=== PATIENT | female | born 1970 ===

== ENCOUNTER 2016-08-06 18:05 | Emergency (ER) | payer MEDICAID ==
[2016-08-06 18:05] VITALS: BMI 33.3
[2016-08-06 19:19] VITALS: RESP 14; TEMP 98
[2016-08-06] MEDS ORDERED: Sodium Chloride 0.9% 1,000 ML IV ONE (20:14)
[2016-08-06 21:00] LABS: RBC URINE 2129 /hpf (0-3); URINE BACTERIA FEW (<OCC); URINE BILIRUBIN NEGATIVE (NEGATIVE); URINE BLOOD 3+ (NEGATIVE); URINE COLOR Amber (YELLOW); URINE GLUCOSE (UA) NORMAL (Normal); URINE KETONE NEGATIVE (NEGATIVE); URINE LEUKOCYTE ESTERASE NEG Leu/uL (Negative); URINE PROTEIN 1+ mg/dL (NEGATIVE); WBC URINE 4 /hpf (0-5)
[2016-08-06 21:22] LABS: CHLORIDE 99 mmol/L (98-107); POTASSIUM 4.1 mmol/L (3.6-5.2); SODIUM 135 mmol/L (132-148)
[2016-08-06 21:24] LABS: ALB/GLOB RATIO 1.3 (1.0-2.1); AST/SGOT 166 U/L (14-36); BILIRUBIN,TOTAL 0.4 mg/dL (0.2-1.3); BLOOD UREA NITROGEN 10 mg/dL (7-17); CARBON DIOXIDE 24 mmol/L (22-30); GFR AFRICAN-AMERICAN > 60; TOTAL PROTEIN 6.6 g/dL (6.3-8.3)
[2016-08-06 21:25] LABS: ALKALINE PHOSPHATASE 103 U/L (38-126); ALT/SGPT 88 U/L (9-52); CALCIUM 8.7 mg/dl (8.6-10.4); GLUCOSE,RANDOM 109 mg/dL (65-105)
[2016-08-06 21:31] LABS: BASO # 0.1 K/uL (0.0-0.2); BASO % 0.9 % (0.0-2.0); EOS # 0.4 K/uL (0.0-0.7); EOS % 4.3 % (0.0-4.0); HEMATOCRIT 36.7 % (34.0-47.0); LYMPH # 2.3 K/uL (1.0-4.3); LYMPH % 26.6 % (20.0-40.0); MEAN CELL VOLUME 90.5 fL (81.0-99.0); MEAN CORPUSCULAR HEMOGLOBIN 30.2 pg (27.0-31.0); MEAN CORPUSCULAR HGB CONC 33.3 g/dL (33.0-37.0); MEAN PLATELET VOLUME 7.5 fL (7.2-11.7); MONO # 0.9 K/uL (0.0-0.8); MONO % 9.9 % (0.0-10.0); NRBC % 0.1 % (0.0-2.0); RED CELL DISTRIBUTION WIDTH 14.3 % (11.5-14.5); WHITE BLOOD COUNT 8.8 K/uL (4.8-10.8)
--- NOTE | 2016-08-06 22:14 | C.PDOC ---
History Of Present Illness <Evelyn Brennan - Last Filed: 08/06/16 22:48> <Dieudonne Payne - Last Filed: 08/06/16 23:44> 45 year old patient presents to the ED complaining of dysuria and hematuria for the past week. Patient also complains of back pain and a subjective fever. Patient has a history of herniated discs. Patient was seen by PMD on Saturday and was given Cipro and Pyridium. Patient was also seen by Urologist, Dr. Mendez, who instructed her to come to the ER on Saturday. Patient is here today for further evaluation. Patient denies any incontinence, numbness or weakness. ( Evelyn Brennan) History Per: Patient History/Exam Limitations: no limitations Onset/Duration Of Symptoms: Other (1 week) Current Symptoms Are (Timing): Still Present Severity: Mild Pain Scale Rating Of: 3 Quality Of Discomfort: "Pain" Associated Symptoms: Fever, Back Pain, Urinary Symptoms Alleviating Factors: None Recent travel outside of the [place]: No Abnormal Vaginal Bleeding: No <Evelyn Brennan - Last Filed: 08/06/16 22:48> <Dieudonne Payne - Last Filed: 08/06/16 23:44> Time Seen by Provider: 08/06/16 19:43 Chief Complaint (Nursing): Female Genitourinary Past Medical History Reviewed: Historical Data, Nursing Documentation, Vital Signs - Medical History PMH: Anxiety, Asthma, Depression, Diabetes, Sleep Apnea (c-PAP) Surgical History: Cholecystectomy Family History: States: Unknown Family Hx - Social History Hx Tobacco Use: No Hx Alcohol Use: No Hx Substance Use: No - Immunization History Hx Tetanus Toxoid Vaccination: Yes Hx Influenza Vaccination: Yes Hx Pneumococcal Vaccination: No <Evelyn Brennan - Last Filed: 08/06/16 22:48> Vital Signs: Last Vital Signs Temp 98 F 08/06/16 19:14 Pulse 80 08/06/16 19:14 Resp 14 08/06/16 19:14 BP 128/84 08/06/16 19:14 Pulse Ox 98 08/06/16 22:49 - [facility] Procedures CL REDUC DISLOC-HAND/FNG (03/21/13) ESOPHAGOGASTRODUODENOSCOPY [EGD] W/CLOSED BIOPSY (09/09/14) INDIVID PSYCHOTHERAP NEC (08/18/13) OTHER GROUP THERAPY (08/18/13) PSYCHIAT DRUG THERAP NEC (08/18/13) Review Of Systems Except As Marked, All Systems Reviewed And Found Negative. Constitutional: Positive for: Fever Gastrointestinal: Positive for: Abdominal Pain Genitourinary: Positive for: Dysuria, Hematuria. Negative for: Incontinence Musculoskeletal: Positive for: Back Pain Neurological: Negative for: Weakness, Numbness <Evelyn Brennan - Last Filed: 08/06/16 22:48> Physical Exam - Physical Exam Appears: Non-toxic, No Acute Distress, Other (uncomfortable) Skin: Warm, Dry Head: Atraumatic, Normacephalic Eye(s): bilateral: Normal Inspection, EOMI Oral Mucosa: Moist Neck: Normal ROM, Supple Chest: Symmetrical Cardiovascular: Rhythm Regular Respiratory: No Accessory Muscle Use Gastrointestinal/Abdominal: Soft, Tenderness (suprapubic), No Guarding, No Rebound Back: No CVA Tenderness, Other (paralumbar tenderness) Extremity: Normal ROM Neurological/Psych: Oriented x3, Normal Speech, Normal Cognition Gait: Steady <Evelyn Brennan - Last Filed: 08/06/16 22:48> ED Course And Treatment - Laboratory Results Result Diagrams: 08/06/16 21:02 08/06/16 21:02 O2 Sat by Pulse Oximetry: 98 (RA) Pulse Ox Interpretation: Normal Progress Note: Plan: -Abdomen/Pelvis CT. -Labs. -IV fluids, Toradol. Case discussed with Dr. Tubbs who is aware of the plan and requests a CT. <Evelyn Brennan - Last Filed: 08/06/16 22:48> - Laboratory Results Result Diagrams: 08/06/16 21:02 08/06/16 21:02 <Dieudonne Payne - Last Filed: 08/06/16 23:44> Disposition - Disposition Disposition Time: 22:48 <Evelyn Brennan - Last Filed: 08/06/16 22:48> <Dieudonne Payne - Last Filed: 08/06/16 23:44> - Disposition Referrals: Aydin Tubbs MD [Staff Provider] - Disposition: HOME/ ROUTINE Condition: STABLE Additional Instructions: Please follow up with your urologist tomorrow. Return to the ER for any worsening symptoms or for any other concerns. Instructions: Acute Hematuria (ED) Forms: General Discharge Instructions - Clinical Impression Clinical Impression: Hematuria - PA / [employer]MENT [employer]ER / Resident Statement MD/DO has reviewed & agrees with the documentation as recorded. - Scribe Statement The provider has reviewed the documentation as recorded by the Scribe <Evelyn Brennan - Last Filed: 08/06/16 22:48> <Dieudonne Payne - Last Filed: 08/06/16 23:44> - Scribe Statement Felicita Morales All medical record entries made by the Scribe were at my direction and personally dictated by me. I have reviewed the chart and agree that the record accurately reflects my personal performance of the history, physical exam, medical decision making, and the department course for this patient. I have also personally directed, reviewed, and agree with the discharge instructions and disposition. (Evelyn Brennan) Physician Patient Turnover Patient Signed Over To: Dieudonne Payne Handoff Comments: Pending CT and disposition <Evelyn Brennan - Last Filed: 08/06/16 22:48> Addendum <Evelyn Brennan - Last Filed: 08/06/16 22:48> <Dieudonne Payne - Last Filed: 08/06/16 23:44> Addendum: 08/06/16 23:00 pt s/o to me by MICHAEL Rivas. she spoke w the pts urologist Dr Tubbs who requested a CT. plan to f/u CT and dc home if normal. 08/06/16 23:40 CT shows no acute abnormality. I disc results and plan w the pt and family. They v/u and agree w plan. All questions and concerns addressed at this time. ( Dieudonne Payne)
--- NOTE | 2016-08-06 23:26 | CT ---
EXAM: CT Abdomen and Pelvis Without and With Intravenous Contrast. CLINICAL HISTORY: 45 years old, female; Condition or disease; Kidney or ureter condition; Other: Hematuria; Additional info: Pain, hematuria TECHNIQUE: Axial computed tomography images of the abdomen and pelvis without and with intravenous contrast. This CT exam was performed using one or more of the following dose reduction techniques: automated exposure control, adjustment of the mA and/or kV according to patient size, and/or use of iterative reconstruction technique. Coronal and sagittal reformatted images were created and reviewed. CONTRAST: 100 mL of omnipaque 350 administered intravenously. COMPARISON: No relevant prior studies available. FINDINGS: Lower thorax: Mild atelectasis/scarring. ABDOMEN: Liver: Fatty infiltration. Gallbladder and bile ducts: Cholecystectomy. No ductal dilation. Pancreas: Unremarkable. No mass. No ductal dilation. Spleen: No splenomegaly. Adrenals: No mass. Kidneys and ureters: No renal calculi. Too small to characterize lesion LEFT kidney. No hydronephrosis. Stomach and bowel: Postsurgical changes of stomach. No definite mural thickening. No obstruction. Appendix: Normal caliber. No inflammation. PELVIS: Bladder: Unremarkable. No mass. No stones. Reproductive: Small ovarian follicles. ABDOMEN and PELVIS: Intraperitoneal space: No significant fluid collection. No free air. Bones/joints: No acute fracture. Soft tissues: Unremarkable. Vasculature: Circumaortic LEFT renal vein. No abdominal aortic aneurysm. Lymph nodes: No pathologically enlarged lymph nodes. IMPRESSION: 1. No definite acute intraabdominal abnormality. 2. Incidental/non-acute findings are described above.
[2016-08-06 23:58] VITALS: BP 132/82; PULSE 72; O2SAT 99
== END 2016-08-06 23:58 | disposition home or self-care (01) ==
LOC: C.ER 18:05
DX: R31.9 Hematuria, unspecified (principal)

== ENCOUNTER 2016-08-09 09:00 | Day surgery (SDC) | payer MEDICAID ==
[2016-08-09 09:48] VITALS: BMI 37.3
[2016-08-09] MEDS ORDERED: Lactated Ringer's 500 ML IV ONE (11:17)
[2016-08-09] MEDS ORDERED: Propofol 10 mg/ml Inj (20 ML) ONE (11:27)
[2016-08-09] MEDS ORDERED: Lidocaine Hydrochloride 5 ML INJ ONE (11:27)
[2016-08-09 11:38] VITALS: O2SAT 98
[2016-08-09 12:21] VITALS: TEMP 98.2
[2016-08-09 13:57] VITALS: RESP 15
[2016-08-09 14:04] VITALS: BP 128/81; PULSE 80
== END 2016-08-09 13:10 | disposition home or self-care (01) ==
LOC: C.ENDO 09:00
PROVIDERS: ATTEND Internal Medicine Gastroenterology
DX: K21.0 Gastro-esophageal reflux disease with esophagitis (principal); K44.9 Diaphragmatic hernia without obstruction or gangrene; K31.9 Disease of stomach and duodenum, unspecified; K25.9 Gastric ulcer, unspecified as acute or chronic, without hemorrhage or perforation; K29.50 Unspecified chronic gastritis without bleeding; I25.10 Atherosclerotic heart disease of native coronary artery without angina pectoris; I25.2 Old myocardial infarction; I10 Essential (primary) hypertension; E11.9 Type 2 diabetes mellitus without complications; E78.5 Hyperlipidemia, unspecified; Z79.84 Long term (current) use of oral hypoglycemic drugs; Z79.82 Long term (current) use of aspirin; Z79.899 Other long term (current) drug therapy

== ENCOUNTER 2018-08-22 12:38 | Outpatient (CLI) | payer BC | END 2018-08-22 12:39 | disposition home or self-care (01) | LOC: C.MAMMO 12:38 | DX: Z12.31 Encounter for screening mammogram for malignant neoplasm of breast (principal); D25.2 Subserosal leiomyoma of uterus ==

== ENCOUNTER 2018-08-22 12:47 | Outpatient (CLI) | payer BC | END 2018-08-22 12:48 | disposition home or self-care (01) | LOC: C.USIC 12:48 | DX: E04.1 Nontoxic single thyroid nodule (principal) ==